=== PATIENT | female | born 1955 | race Two or more races ===

== ENCOUNTER 2017-06-30 15:35 | Inpatient (IN) | payer OTHER ==
[~2017-06-30] VITALS: Ht 165.1 cm; Wt 74.8 kg
[2017-06-30] MEDS ORDERED: DEXTROSE 50% WATER 50ML SYRINGE IV ONE ×3 (16:23→22:54)
[2017-06-30 16:32] LABS: BASOPHILS % 0.8 % (0.0-2.0); CHLORIDE 107 mEq/L (98-107); EOSINOPHILS % 2.2 % (0.0-5.0); HEMATOCRIT. 32.5 % (36.0-48.0); HEMOGLOBIN. 10.7 g/dL (12.0-16.0); LYMPHOCYTES % 23.5 % (20.0-50.0); MEAN CORPUSCULAR HEMOGLOBIN 27.2 pg (28.0-32.0); MEAN CORPUSCULAR VOLUME 82.5 fL (81.0-99.0); MEAN PLATELET VOLUME 7.3 fl (7.4-10.4); MONOCYTES % 9.6 % (2.0-8.0); NEUTROPHILS % 63.9 % (40.0-76.0); PLATELET 438 x1000/uL (130-400); RED BLOOD CELL COUNT 3.94 mill/uL (4.2-5.4); RED CELL DISTRIBUTION WIDTH 15.6 % (11.6-14.6)
[2017-06-30 20:36] LABS: CLARITY URINE CLEAR (CLEAR); COLOR URINE YELLOW (YELLOW); KETONES URINE NEGATIVE (NEGATIVE); LEUKOCYTE ESTERASE URINE NEGATIVE (NEGATIVE); NITRITE URINE NEGATIVE (NEGATIVE); OCCULT BLOOD URINE NEGATIVE (NEGATIVE); PH URINE 6.5 (4.5-8.0); PROTEIN URINE TRACE (NEGATIVE); UROBILINOGEN URINE 0.2 E.U./dL (0.2-1.0)
[2017-06-30 23:40] VITALS: BP 125/72
[2017-07-01] MEDS ORDERED: METF500T4 PO (00:40)
[2017-07-01] MEDS ORDERED: GLIP10TA10 PO (00:40)
[2017-07-01] MEDS ORDERED: DEXTROSE 50% WATER 50ML SYRINGE IV PRN (01:45)
[2017-07-01] MEDS: DEXT 10% WATER 1,000 ML IV SCH ×2 (02:13→12:28)
[2017-07-01] MEDS: ACETAMINOPHEN 325MG TABLET PO PRN ×2 (02:15→06:20)
[2017-07-01 03:09] VITALS: BP 125/72
[2017-07-01 04:00] VITALS: BP 127/58
[2017-07-01] MEDS: BLOOD SUGAR DIAGNOSTIC STRIP TEST SCH ×4 (04:15→21:00)
[2017-07-01 06:38] LABS: BASOPHILS % 0.6 % (0.0-2.0); EOSINOPHILS % 2.9 % (0.0-5.0); HEMOGLOBIN. 9.5 g/dL (12.0-16.0); LYMPHOCYTES % 28.5 % (20.0-50.0); MEAN CORPUSCULAR HEMOGLOBIN 27.2 pg (28.0-32.0); MEAN CORPUSCULAR VOLUME 82.7 fL (81.0-99.0); MEAN PLATELET VOLUME 8.1 fl (7.4-10.4); MONOCYTES % 11.6 % (2.0-8.0); NEUTROPHILS % 56.4 % (40.0-76.0); PLATELET 393 x1000/uL (130-400); RED CELL DISTRIBUTION WIDTH 15.6 % (11.6-14.6)
[2017-07-01 08:00] VITALS: BP 140/78
[2017-07-01] MEDS ORDERED: MORPHINE SULFATE 4 MG/ML CPJ (NOT FOR IM USE) IV PRN (09:15)
[2017-07-01 12:00] VITALS: BP 151/79
[2017-07-01] MEDS: HYDROCODONE/ACETAMINOPHEN 5/325MG TABLET PO PRN ×2 (12:27→20:30)
[2017-07-01 16:00] VITALS: BP 134/72
[2017-07-01 20:00] VITALS: BP 152/76
[2017-07-02] MEDS: DEXT 10% WATER 1,000 ML IV SCH (00:04)
[2017-07-02 00:11] VITALS: BP 126/59
[2017-07-02] MEDS: HYDROCODONE/ACETAMINOPHEN 5/325MG TABLET PO PRN ×2 (02:18→12:24)
[2017-07-02] MEDS ORDERED: BLOOD SUGAR DIAGNOSTIC STRIP TEST SCH (03:00)
[2017-07-02 04:00] VITALS: BP 142/67
[2017-07-02] MEDS: BLOOD SUGAR DIAGNOSTIC STRIP TEST SCH ×2 (06:53→12:40)
[2017-07-02 07:28] LABS: T4 FREE 0.89 ng/dL (0.76-1.46)
[2017-07-02 08:00] VITALS: BP 156/80
[2017-07-02 08:15] LABS: VITAMIN B12 SERUM 321 pg/mL (211-911)
[2017-07-02] MEDS: INSULIN LISPRO 100 UNITS/ML SUBCUT SCH ×2 (08:35→13:01)
[2017-07-02 11:52] LABS: HEPATITIS B SURFACE ANTIGEN NEGATIVE
[2017-07-02 12:00] VITALS: BP 156/90
[2017-07-02 12:20] LABS: HEPATITIS B CORE AB IGM NEGATIVE
[2017-07-02 12:21] LABS: HEPATITIS A AB IGM NEGATIVE (NEGATIVE)
[2017-07-02] MEDS ORDERED: MAGNESIUM 2 G PREMIX 50 ML IV NR (14:00)
[2017-07-02 14:54] VITALS: BP 159/90
[2017-07-03 10:06] LABS: VITAMIN D 25-OH 12.6 ng/mL (30.0-100.0)
[2017-07-03 13:09] LABS: A/G RATIO 1.2 (0.7-1.7); ALPHA-1-GLOBULIN 0.3 g/dL (0.0-0.4); ALPHA-2-GLOBULIN 0.5 g/dL (0.4-1.0); GAMMA GLOBULINS 0.7 g/dL (0.4-1.8); GLOBULIN TOTAL 2.6 g/dL (2.2-3.9); M-SPIKE Not Observed g/dL (Not Observed); TOTAL PROTEIN SERUM 5.6 g/dL (6.0-8.5)
== END 2017-07-02 15:20 | disposition home or self-care (01) | DRG 420 ==
LOC: ER 15:35 → 7WST 20:55 → EDBEDREQTM 21:02 → EDBEDREQ 21:02 → ENRESERV 22:42
PROVIDERS: ADMIT Internal Medicine; ATTEND Internal Medicine
DX: E11.649 Type 2 diabetes mellitus with hypoglycemia without coma (principal); N17.9 Acute kidney failure, unspecified; E11.22 Type 2 diabetes mellitus with diabetic chronic kidney disease; N18.3 Chronic kidney disease, stage 3 (moderate); E83.42 Hypomagnesemia; E83.51 Hypocalcemia; K76.89 Other specified diseases of liver; E83.52 Hypercalcemia; E87.6 Hypokalemia; D64.9 Anemia, unspecified; I12.9 Hypertensive chronic kidney disease with stage 1 through stage 4 chronic kidney disease, or unspecified chronic kidney disease; E78.00 Pure hypercholesterolemia, unspecified; J02.0 Streptococcal pharyngitis; Z79.84 Long term (current) use of oral hypoglycemic drugs; Z82.49 Family history of ischemic heart disease and other diseases of the circulatory system; Z83.3 Family history of diabetes mellitus; Z79.899 Other long term (current) drug therapy
CPT/HCPCS: 36415; 71045; 76700; 80048; 80053; 80307; 81003; 82306; 82533; 82607; 82746; 82962; 83036; 83540; 83550; 83735; 83921; 83970; 84155; 84165; 84439; 84443; 85025; 86705; 86709; 86803; 87086; 87340; 87430; 93005; 96374; 99285; J1815; J3475

== ENCOUNTER 2024-02-27 03:05 | Emergency (ER) | payer MEDICARE, MEDICAID ==
[~2024-02-27] VITALS: Ht 149.9 cm; Wt 84.0 kg
[~2024-02-27 03:05] MED LIST: METF-414 PO
[2024-02-27 03:22] VITALS: TEMP 98.5; O2SAT 100
[2024-02-27 04:02] LABS: EOSINOPHILS % 3.5 % (0.0-5.0); HEMATOCRIT. 32.6 % (36.0-48.0); HEMOGLOBIN. 10.7 g/dL (12.0-16.0); LYMPHOCYTES % 23.9 % (20.0-50.0); MEAN CORPUSCULAR HEMOGLOBIN 28.3 pg (28.0-32.0); MEAN CORPUSCULAR HGB CONC 32.7 g/dL (31.0-37.0); MEAN CORPUSCULAR VOLUME 86.8 fL (81.0-99.0); MONOCYTES % 10.7 % (2.0-8.0); NEUTROPHILS % 60.9 % (40.0-76.0); PLATELET 296 x1000/uL (130-400); RED BLOOD CELL COUNT 3.76 mill/uL (4.2-5.4); RED CELL DISTRIBUTION WIDTH 15.2 % (11.6-14.6); WHITE BLOOD COUNT 7.9 x1000/uL (4.5-11.0)
[2024-02-27 04:03] LABS: CHLORIDE 113 mEq/L (98-107); POTASSIUM 5.2 mEq/L (3.5-5.1); SODIUM 141 mEq/L (136-145)
[2024-02-27 04:04] LABS: CALCIUM 9.6 mg/dL (8.7-10.4); CARBON DIOXIDE 19 mEq/L (21-32)
[2024-02-27] MEDS: ONDANSETRON 4MG ODT PO STA (04:04)
[2024-02-27] MEDS: HYDROCODONE/ACETAMINOPHEN 5/325MG TABLET PO ONE (04:04)
[2024-02-27 04:09] LABS: CREATININE 3.5 mg/dL (0.6-1.0); GLUCOSE 196 mg/dL (70-105); UREA NITROGEN BLOOD 58 mg/dL (9-23)
[2024-02-27 04:11] LABS: ALANINE AMINOTRANSFERASE 13 IU/L (10-49); ALBUMIN 4.3 g/dL (3.2-4.8); ASPARTATE AMINOTRANSFERASE 16 IU/L (<34); BILIRUBIN TOTAL 0.3 mg/dL (0.1-1.0); PROTEIN TOTAL 7.5 g/dL (6.0-8.3)
[2024-02-27] MEDS ORDERED: BENAZEPRIL 10MG TABLET PO ONE (04:30)
[2024-02-27] MEDS: LISINOPRIL 10MG TABLET PO NR (04:49)
[2024-02-27 05:36] LABS: CLARITY URINE CLEAR (CLEAR); COLOR URINE YELLOW (YELLOW); GLUCOSE URINE NEGATIVE (NEGATIVE); KETONES URINE NEGATIVE (NEGATIVE); LEUKOCYTE ESTERASE URINE NEGATIVE (NEGATIVE); NITRITE URINE NEGATIVE (NEGATIVE); OCCULT BLOOD URINE NEGATIVE (NEGATIVE); PH URINE 5.5 (4.5-8.0); PROTEIN URINE 2+ (NEGATIVE); SPECIFIC GRAVITY URINE 1.009 (1.005-1.030); UROBILINOGEN URINE 0.2 E.U./dL (0.2-1.0)
[2024-02-27 05:59] LABS: SQUAMOUS EPITHELIAL CELL URINE FEW /lpf (RARE/1+)
[2024-02-27 06:00] LABS: BACTERIA URINE NONE SEEN; RBC URINE 0-2 /hpf (0-2); WBC URINE 0-2 /hpf (0-2)
[2024-02-27 06:02] VITALS: BP 121/56; PULSE 96; RESP 18; O2SAT 97
== END 2024-02-27 06:03 | disposition home or self-care (01) ==
LOC: ER 03:05
DX: D25.9 Leiomyoma of uterus, unspecified (principal); I31.39 Other pericardial effusion (noninflammatory); N28.89 Other specified disorders of kidney and ureter; E11.65 Type 2 diabetes mellitus with hyperglycemia; I10 Essential (primary) hypertension
CPT/HCPCS: 99284; 74176; 80053; 81003; 83690; 85025; 36415; Q0162

== ENCOUNTER 2024-03-11 10:11 | Emergency (ER) | payer MEDICARE, MEDICAID ==
[~2024-03-11] VITALS: Ht 149.9 cm; Wt 83.0 kg
[2024-03-11 10:22] VITALS: O2SAT 100
[2024-03-11] MEDS: MORPHINE SULFATE 4 MG/ML INJ (FOR IV/IM USE) IV ONE (11:06)
[2024-03-11] MEDS: SODIUM CHLORIDE 0.9% 1,000 ML IV ONE (11:06)
[2024-03-11] MEDS: ONDANSETRON HCL 4MG/2ML INJ IV ONE (11:06)
[2024-03-11 11:13] LABS: BASOPHILS % 1.1 % (0.0-2.0); EOSINOPHILS % 2.5 % (0.0-5.0); HEMATOCRIT. 30.7 % (36.0-48.0); HEMOGLOBIN. 9.9 g/dL (12.0-16.0); LYMPHOCYTES % 18.7 % (20.0-50.0); MEAN CORPUSCULAR HEMOGLOBIN 28.2 pg (28.0-32.0); MEAN CORPUSCULAR HGB CONC 32.3 g/dL (31.0-37.0); MEAN CORPUSCULAR VOLUME 87.5 fL (81.0-99.0); MONOCYTES % 9.9 % (2.0-8.0); NEUTROPHILS % 67.8 % (40.0-76.0); PLATELET 349 x1000/uL (130-400); RED BLOOD CELL COUNT 3.51 mill/uL (4.2-5.4); RED CELL DISTRIBUTION WIDTH 15.1 % (11.6-14.6); WHITE BLOOD COUNT 8.3 x1000/uL (4.5-11.0)
[2024-03-11 11:21] LABS: CHLORIDE 111 mEq/L (98-107); POTASSIUM 4.5 mEq/L (3.5-5.1); SODIUM 144 mEq/L (136-145)
[2024-03-11 11:22] LABS: CARBON DIOXIDE 24 mEq/L (21-32)
[2024-03-11 11:23] LABS: CALCIUM 9.9 mg/dL (8.7-10.4)
[2024-03-11 11:27] LABS: CREATININE 3.2 mg/dL (0.6-1.0); GLUCOSE 80 mg/dL (70-105)
[2024-03-11 11:28] LABS: TROPONIN I HIGH SENSITIVITY 17 ng/L (3.0-34); UREA NITROGEN BLOOD 39 mg/dL (9-23)
[2024-03-11 11:29] LABS: ALANINE AMINOTRANSFERASE 13 IU/L (10-49); ALBUMIN 4.2 g/dL (3.2-4.8); ASPARTATE AMINOTRANSFERASE 21 IU/L (<34)
[2024-03-11 11:30] LABS: BILIRUBIN TOTAL 0.4 mg/dL (0.1-1.0); PROTEIN TOTAL 7.1 g/dL (6.0-8.3)
[2024-03-11 11:31] LABS: BILIRUBIN DIRECT < 0.1 mg/dL (<=3.0)
[2024-03-11] MEDS ORDERED: PANT20TA17 MT (12:48)
[2024-03-11 13:48] VITALS: BP 198/90; PULSE 68; RESP 21; TEMP 36.61404; O2SAT 95
== END 2024-03-11 13:54 | disposition home or self-care (01) ==
LOC: ER 10:11
DX: R10.12 Left upper quadrant pain (principal); R10.11 Right upper quadrant pain; E11.9 Type 2 diabetes mellitus without complications; I10 Essential (primary) hypertension; E78.00 Pure hypercholesterolemia, unspecified; Z90.49 Acquired absence of other specified parts of digestive tract
CPT/HCPCS: 99284; 74176; 96374; 96361; 96375; 80076; 80048; 83690; 85025; 84484; 36415; 93005; J2405; J2270; J7030

== ENCOUNTER 2024-05-08 07:39 | Inpatient (IN) | payer MEDICARE, MEDICAID ==
[~2024-05-08] VITALS: Ht 157.5 cm; Wt 98.0 kg
[~2024-05-08 07:39] MED LIST changes: +ALBU90AE INH; +AMLO10TA80 PO; +ATOR20TA PO; +FURO40TA5 MT; +HYDR25TA78 PO; +LANTUSUD SUBCUT; -METF-414 PO; +METO-385 PO; +MONT-46 PO; +SITA50TA3 PO
[2024-05-08] MEDS: FUROSEMIDE 40MG/4ML VIAL IVP ONE (08:53)
[2024-05-08 09:17] LABS: BASOPHILS % 0.8 % (0.0-2.0); EOSINOPHILS % 2.3 % (0.0-5.0); HEMATOCRIT. 26.2 % (36.0-48.0); HEMOGLOBIN. 8.7 g/dL (12.0-16.0); MEAN CORPUSCULAR HEMOGLOBIN 28.3 pg (28.0-32.0); MEAN CORPUSCULAR HGB CONC 33.1 g/dL (31.0-37.0); MEAN CORPUSCULAR VOLUME 85.4 fL (81.0-99.0); MEAN PLATELET VOLUME 8.1 fl (7.4-10.4); MONOCYTES % 10.8 % (2.0-8.0); NEUTROPHILS % 77.1 % (40.0-76.0); PLATELET 270 x1000/uL (130-400); RED BLOOD CELL COUNT 3.06 mill/uL (4.2-5.4); RED CELL DISTRIBUTION WIDTH 15.2 % (11.6-14.6); WHITE BLOOD COUNT 10.8 x1000/uL (4.5-11.0)
[2024-05-08 09:28] LABS: CHLORIDE 109 mEq/L (98-107); POTASSIUM 4.2 mEq/L (3.5-5.1); SODIUM 142 mEq/L (136-145)
[2024-05-08 09:29] LABS: CALCIUM 8.9 mg/dL (8.7-10.4); CARBON DIOXIDE 23 mEq/L (21-32)
[2024-05-08 09:34] LABS: CREATININE 3.1 mg/dL (0.6-1.0); GLUCOSE 255 mg/dL (70-105); TROPONIN I HIGH SENSITIVITY 12 ng/L (3.0-34); UREA NITROGEN BLOOD 61 mg/dL (9-23)
[2024-05-08] MEDS ORDERED: ACETAMINOPHEN 325MG TABLET PO PRN (09:45)
[2024-05-08] MEDS ORDERED: DEXTROSE 50% WATER 50ML SYRINGE IV PRN (10:00)
[2024-05-08] MEDS: PANTOPRAZOLE SODIUM 40 MG/VIAL IV SCH (10:11)
[2024-05-08] MEDS: FUROSEMIDE 40MG/4ML VIAL IVP SCH (10:12)
[2024-05-08] MEDS: AMLODIPINE 5MG TABLET PO NR (10:12)
[2024-05-08 10:14] VITALS: PULSE 92; RESP 16; O2SAT 100
[2024-05-08] MEDS: IPRATROPIUM/ALBUTEROL 0.5-3(2.5)MG/3ML NEB NEB SCH (10:14)
[2024-05-08] MEDS: INSULIN GLARGINE 100 UNITS/ML SUBCUT SCH (10:23)
[2024-05-08] MEDS ORDERED: NALOXONE HCL 0.4MG/ML VIAL IV PRN (10:30)
[2024-05-08] MEDS: METOPROLOL SUCCINATE 25MG ER TABLET PO SCH (10:42)
[2024-05-08] MEDS: ENOXAPARIN 40MG/0.4ML SYR SUBCUT SCH (11:04)
[2024-05-08 11:41] LABS: TROPONIN I HIGH SENSITIVITY 12 ng/L (3.0-34)
[2024-05-08] MEDS: BLOOD SUGAR DIAGNOSTIC STRIP TEST SCH (13:08)
[2024-05-08] MEDS: INSULIN LISPRO 100 UNITS/ML SUBCUT SCH (13:40)
[2024-05-08] MEDS: HYDRALAZINE HCL 25MG TABLET PO SCH (15:12)
[2024-05-08 15:21] VITALS: PULSE 89; RESP 20
[2024-05-08] MEDS: MONTELUKAST SODIUM 10MG TABLET PO SCH (17:17)
[2024-05-08] MEDS: ONDANSETRON HCL 4MG/2ML INJ IV PRN (18:07)
[2024-05-08 18:32] LABS: CREATINE KINASE 128 IU/L (34-145); PHOSPHORUS 3.1 mg/dL (2.5-4.9)
[2024-05-08] MEDS: CLONIDINE 0.1MG TABLET PO PRN (19:13)
[2024-05-08 19:59] VITALS: PULSE 85; RESP 18; O2SAT 99
[2024-05-08] MEDS: HYDROCODONE/ACETAMINOPHEN 5/325MG TABLET PO PRN (20:52)
[2024-05-08] MEDS ORDERED: ZOLPIDEM TARTRATE 5MG TABLET PO PRN (21:00)
[2024-05-08] MEDS: ATORVASTATIN CALCIUM 20MG TABLET PO SCH (21:02)
[2024-05-08 23:00] VITALS: BP 100/46; PULSE 68; RESP 18; TEMP 36.6
[2024-05-09] VITALS (8 sets, daily range): BP systolic 100–139; BP diastolic 45–65; PULSE 68–98; RESP 17–20; TEMP 36.2–37.4; O2SAT 95–100
[2024-05-09 02:18] LABS: TROPONIN I HIGH SENSITIVITY 13 ng/L (3.0-34)
[2024-05-09] MEDS: AMLODIPINE 10MG TABLET PO SCH (09:45)
[2024-05-09 10:18] LABS: BASOPHILS % 0.8 % (0.0-2.0); EOSINOPHILS % 3.2 % (0.0-5.0); HEMOGLOBIN. 7.4 g/dL (12.0-16.0); MEAN CORPUSCULAR HEMOGLOBIN 27.9 pg (28.0-32.0); MEAN CORPUSCULAR HGB CONC 32.4 g/dL (31.0-37.0); MEAN CORPUSCULAR VOLUME 86.3 fL (81.0-99.0); MEAN PLATELET VOLUME 7.9 fl (7.4-10.4); MONOCYTES % 12.3 % (2.0-8.0); NEUTROPHILS % 69.7 % (40.0-76.0); PLATELET 229 x1000/uL (130-400); RED BLOOD CELL COUNT 2.67 mill/uL (4.2-5.4); RED CELL DISTRIBUTION WIDTH 15.2 % (11.6-14.6); WHITE BLOOD COUNT 8.7 x1000/uL (4.5-11.0)
[2024-05-09 10:21] LABS: POTASSIUM 4.7 mEq/L (3.5-5.1)
[2024-05-09 10:22] LABS: CALCIUM 8.9 mg/dL (8.7-10.4)
[2024-05-09 10:27] LABS: CREATININE 3.4 mg/dL (0.6-1.0)
[2024-05-10] VITALS: BP 121/60; PULSE 94; RESP 18; TEMP 36.5; O2SAT 95
[2024-05-10] MEDS: METHYLPREDNISOLONE SOD SUCC 40MG/ML (ACT-O-VIAL) IV SCH (02:19)
[2024-05-10 04:00] VITALS: BP 126/60; PULSE 61; RESP 18; TEMP 36.5; O2SAT 99
[2024-05-10 06:18] LABS: *AMPHETAMINES SCREEN URINE NEGATIVE (NEGATIVE); *BARBITURATES SCREEN URINE NEGATIVE (NEGATIVE); *BENZODIAZEPINES SCREEN URINE NEGATIVE (NEGATIVE); *COCAINE SCREEN URINE NEGATIVE (NEGATIVE); CANNABINOID URINE SCREEN NEGATIVE (NEGATIVE); ECSTASY MDMA SCREEN URINE NEGATIVE (NEGATIVE); METHADONE URINE SCREEN NEGATIVE (NEGATIVE); OPIATES URINE SCREEN PRESUMPTIVE POSITIVE (NEGATIVE); PHENCYCLIDINE URINE SCREEN NEGATIVE (NEGATIVE)
[2024-05-10 06:46] LABS: POTASSIUM 4.8 mEq/L (3.5-5.1)
[2024-05-10 06:47] LABS: CALCIUM 9.4 mg/dL (8.7-10.4)
[2024-05-10 06:52] LABS: CREATININE 3.6 mg/dL (0.6-1.0)
[2024-05-10 07:11] LABS: BASOPHILS % 0.6 % (0.0-2.0); EOSINOPHILS % 2.6 % (0.0-5.0); HEMATOCRIT. 24.7 % (36.0-48.0); HEMOGLOBIN. 8.1 g/dL (12.0-16.0); LYMPHOCYTES % 10.6 % (20.0-50.0); MEAN CORPUSCULAR HGB CONC 32.6 g/dL (31.0-37.0); MEAN CORPUSCULAR VOLUME 85.8 fL (81.0-99.0); MEAN PLATELET VOLUME 8.5 fl (7.4-10.4); MONOCYTES % 6.9 % (2.0-8.0); NEUTROPHILS % 79.3 % (40.0-76.0); PLATELET 258 x1000/uL (130-400); RED BLOOD CELL COUNT 2.88 mill/uL (4.2-5.4); WHITE BLOOD COUNT 10.7 x1000/uL (4.5-11.0)
[2024-05-10 08:00] VITALS: BP 142/66; PULSE 86; RESP 16; TEMP 36.6; O2SAT 98
[2024-05-10 12:00] VITALS: BP 126/60; PULSE 88; RESP 18; TEMP 36.2; O2SAT 99
[2024-05-10 16:00] VITALS: BP 132/66; PULSE 78; RESP 16; TEMP 36.4; O2SAT 98
[2024-05-10 20:00] VITALS: BP 119/53; PULSE 91; RESP 20; TEMP 36.3; O2SAT 100
[2024-05-11] VITALS (8 sets, daily range): BP systolic 117–133; BP diastolic 48–66; PULSE 72–91; RESP 2–22; TEMP 35.8–36.5; O2SAT 95–98
[2024-05-11 07:00] LABS: CALCIUM 9.3 mg/dL (8.7-10.4); POTASSIUM 5.6 mEq/L (3.5-5.1)
[2024-05-11 07:06] LABS: CREATININE 3.1 mg/dL (0.6-1.0)
[2024-05-11 07:57] LABS: HEMATOCRIT. 25.6 % (36.0-48.0); HEMOGLOBIN. 8.2 g/dL (12.0-16.0); MEAN CORPUSCULAR HEMOGLOBIN 27.5 pg (28.0-32.0); MEAN CORPUSCULAR HGB CONC 32.2 g/dL (31.0-37.0); MEAN CORPUSCULAR VOLUME 85.5 fL (81.0-99.0); MEAN PLATELET VOLUME 8.5 fl (7.4-10.4); PLATELET 261 x1000/uL (130-400); RED BLOOD CELL COUNT 2.99 mill/uL (4.2-5.4); RED CELL DISTRIBUTION WIDTH 14.7 % (11.6-14.6); WHITE BLOOD COUNT 11.5 x1000/uL (4.5-11.0)
[2024-05-11 10:01] LABS: DIFFERENTIAL COMMENT 1
[2024-05-11] MEDS: SODIUM POLYSTYRENE SULFONATE 15 G/60 ML BOT PO SCH (11:45)
[2024-05-11 16:55] LABS: PLATELET ESTIMATE NORMAL
[2024-05-12] VITALS: BP 153/70; PULSE 90; RESP 18; TEMP 36.4; O2SAT 99
[2024-05-12 03:11] VITALS: PULSE 81
[2024-05-12 04:00] VITALS: BP 128/53; PULSE 91; RESP 18; TEMP 36.5; O2SAT 98
[2024-05-12 07:10] LABS: CHLORIDE 105 mEq/L (98-107); POTASSIUM 4.8 mEq/L (3.5-5.1); SODIUM 140 mEq/L (136-145)
[2024-05-12 07:11] LABS: CARBON DIOXIDE 22 mEq/L (21-32)
[2024-05-12 07:13] LABS: HEMATOCRIT. 25.8 % (36.0-48.0); HEMOGLOBIN. 8.5 g/dL (12.0-16.0); MEAN CORPUSCULAR HEMOGLOBIN 27.9 pg (28.0-32.0); MEAN CORPUSCULAR VOLUME 84.6 fL (81.0-99.0); MEAN PLATELET VOLUME 8.7 fl (7.4-10.4); PLATELET 291 x1000/uL (130-400); RED BLOOD CELL COUNT 3.05 mill/uL (4.2-5.4)
[2024-05-12 07:16] LABS: CREATININE 3.2 mg/dL (0.6-1.0); GLUCOSE 328 mg/dL (70-105)
[2024-05-12 07:17] LABS: UREA NITROGEN BLOOD 74 mg/dL (9-23)
[2024-05-12 07:19] LABS: PHOSPHORUS 4.5 mg/dL (2.5-4.9)
[2024-05-12 07:47] LABS: DIFFERENTIAL COMMENT 1
[2024-05-12 08:00] VITALS: BP 141/74; PULSE 79; RESP 17; TEMP 36.4; O2SAT 98
[2024-05-12] MEDS ORDERED: FURO40TA5 MT (12:17)
[2024-05-12] MEDS ORDERED: P20 MT (12:19)
[2024-05-12] MEDS: FUROSEMIDE 40MG TABLET PO NR (12:48)
[2024-05-12 12:56] VITALS: BP 141/74; PULSE 79; TEMP 97.5; O2SAT 98
[2024-05-12 14:29] LABS: PLATELET ESTIMATE NORMAL
== END 2024-05-12 14:00 | disposition home or self-care (01) | DRG 291 ==
LOC: ER 07:39 → 6WST 12:33
PROVIDERS: ADMIT Internal Medicine; ATTEND Internal Medicine
DX: I13.2 Hypertensive heart and chronic kidney disease with heart failure and with stage 5 chronic kidney disease, or end stage renal disease (principal); I50.33 Acute on chronic diastolic (congestive) heart failure; N17.9 Acute kidney failure, unspecified; N18.5 Chronic kidney disease, stage 5; R06.89 Other abnormalities of breathing; J44.89 Other specified chronic obstructive pulmonary disease; F17.210 Nicotine dependence, cigarettes, uncomplicated; D63.1 Anemia in chronic kidney disease; E11.22 Type 2 diabetes mellitus with diabetic chronic kidney disease; K57.30 Diverticulosis of large intestine without perforation or abscess without bleeding; E66.9 Obesity, unspecified; E78.5 Hyperlipidemia, unspecified; I34.0 Nonrheumatic mitral (valve) insufficiency; I34.81 Nonrheumatic mitral (valve) annulus calcification; N20.0 Calculus of kidney; Z90.49 Acquired absence of other specified parts of digestive tract; Z68.39 Body mass index [BMI] 39.0-39.9, adult
CPT/HCPCS: 36415; 71045; 76604; 76770; 80048; 80061; 80305; 82550; 82962; 83036; 83735; 84100; 84484; 85025; 93005; 93880; 94070; 94640; 94664; 98960; 99291; A4606; J1650; J1815; J1940; J2405; J2470; J2920

== ENCOUNTER 2024-10-26 09:29 | Emergency (ER) | payer MEDICARE, MEDICAID ==
[~2024-10-26] VITALS: Ht 149.9 cm; Wt 86.0 kg
[~2024-10-26 09:29] MED LIST changes: +FERR325T30 PO; +FLUT1BLS INH; +METH4TAB95 MT; +OMEP20CA14 PO; +PRED5DRO22 BOTHEYE; +RISP-28 PO
[2024-10-26 11:32] LABS: BASOPHILS % 1.1 % (0.0-2.0); EOSINOPHILS % 3.5 % (0.0-5.0); HEMATOCRIT. 31.4 % (36.0-48.0); HEMOGLOBIN. 10.3 g/dL (12.0-16.0); LYMPHOCYTES % 15.6 % (20.0-50.0); MEAN PLATELET VOLUME 7.3 fl (7.4-10.4); MONOCYTES % 9.2 % (2.0-8.0); NEUTROPHILS % 70.6 % (40.0-76.0); PLATELET 351 x1000/uL (130-400); RED BLOOD CELL COUNT 3.78 mill/uL (4.2-5.4); RED CELL DISTRIBUTION WIDTH 16.3 % (11.6-14.6)
[2024-10-26 11:48] LABS: ASPARTATE AMINOTRANSFERASE 16 IU/L (<34); CREATININE 3.8 mg/dL (0.6-1.0); UREA NITROGEN BLOOD 45 mg/dL (9-23)
[2024-10-26 11:50] LABS: BILIRUBIN DIRECT 0.1 mg/dL (<=3.0); BILIRUBIN TOTAL 0.5 mg/dL (0.1-1.0)
[2024-10-26 11:51] LABS: PROTEIN TOTAL 7.7 g/dL (6.0-8.3)
[2024-10-26 12:03] VITALS: PULSE 66; RESP 18; O2SAT 95
[2024-10-26] MEDS: IPRATROPIUM/ALBUTEROL 0.5-3(2.5)MG/3ML NEB HHN ONE (12:03)
[2024-10-26] MEDS: ONDANSETRON 4MG ODT PO ONE (12:28)
[2024-10-26 14:13] LABS: CLARITY URINE CLEAR (CLEAR); COLOR URINE YELLOW (YELLOW); GLUCOSE URINE 2+ (NEGATIVE); KETONES URINE NEGATIVE (NEGATIVE); LEUKOCYTE ESTERASE URINE NEGATIVE (NEGATIVE); NITRITE URINE NEGATIVE (NEGATIVE); OCCULT BLOOD URINE NEGATIVE (NEGATIVE); PH URINE 5.5 (4.5-8.0); PROTEIN URINE 3+ (NEGATIVE); SPECIFIC GRAVITY URINE 1.016 (1.005-1.030); UROBILINOGEN URINE 0.2 E.U./dL (0.2-1.0)
[2024-10-26] MEDS ORDERED: ACET-2708 MT (14:31)
[2024-10-26 14:58] LABS: HYALINE CASTS URINE 0-5 /lpf; SQUAMOUS EPITHELIAL CELL URINE 2+ /lpf (RARE/1+)
[2024-10-26 14:59] LABS: BACTERIA URINE NONE SEEN; RBC URINE 0-2 /hpf (0-2)
[2024-10-26 15:06] VITALS: BP 169/72; PULSE 69; RESP 18; TEMP 37.1; O2SAT 99
== END 2024-10-26 15:07 | disposition home or self-care (01) ==
LOC: ER 09:29
DX: J45.901 Unspecified asthma with (acute) exacerbation (principal); E11.9 Type 2 diabetes mellitus without complications; E78.00 Pure hypercholesterolemia, unspecified; I10 Essential (primary) hypertension; Z79.51 Long term (current) use of inhaled steroids; Z79.84 Long term (current) use of oral hypoglycemic drugs; Z79.899 Other long term (current) drug therapy
CPT/HCPCS: 99284; 74176; 80076; 80048; 81003; 83690; 83735; 85025; 36415; 94640; 93005; Q0162; 94070

== ENCOUNTER 2024-12-05 03:39 | Inpatient (IN) | payer MEDICARE, MEDICAID ==
[~2024-12-05] VITALS: Ht 149.9 cm; Wt 96.7 kg
[~2024-12-05 03:39] MED LIST changes: +ACET-2708 MT
[2024-12-05 04:52] LABS: CLARITY URINE CLEAR (CLEAR); COLOR URINE YELLOW (YELLOW); GLUCOSE URINE NEGATIVE (NEGATIVE); KETONES URINE NEGATIVE (NEGATIVE); LEUKOCYTE ESTERASE URINE TRACE (NEGATIVE); NITRITE URINE NEGATIVE (NEGATIVE); OCCULT BLOOD URINE NEGATIVE (NEGATIVE); PH URINE 5.5 (4.5-8.0); PROTEIN URINE 2+ (NEGATIVE); SPECIFIC GRAVITY URINE 1.010 (1.005-1.030); UROBILINOGEN URINE 0.2 E.U./dL (0.2-1.0)
[2024-12-05 04:53] LABS: BASOPHILS % 1.2 % (0.0-2.0); EOSINOPHILS % 2.8 % (0.0-5.0); HEMATOCRIT. 24.9 % (36.0-48.0); HEMOGLOBIN. 8.0 g/dL (12.0-16.0); LYMPHOCYTES % 11.7 % (20.0-50.0); MEAN PLATELET VOLUME 7.4 fl (7.4-10.4); MONOCYTES % 10.2 % (2.0-8.0); NEUTROPHILS % 74.1 % (40.0-76.0); PLATELET 363 x1000/uL (130-400); RED BLOOD CELL COUNT 2.95 mill/uL (4.2-5.4); RED CELL DISTRIBUTION WIDTH 16.5 % (11.6-14.6)
[2024-12-05 05:01] LABS: *AMPHETAMINES SCREEN URINE NEGATIVE (NEGATIVE); *BARBITURATES SCREEN URINE NEGATIVE (NEGATIVE); *BENZODIAZEPINES SCREEN URINE NEGATIVE (NEGATIVE); *COCAINE SCREEN URINE NEGATIVE (NEGATIVE); CANNABINOID URINE SCREEN NEGATIVE (NEGATIVE); ECSTASY MDMA SCREEN URINE NEGATIVE (NEGATIVE); METHADONE URINE SCREEN NEGATIVE (NEGATIVE); OPIATES URINE SCREEN NEGATIVE (NEGATIVE); PHENCYCLIDINE URINE SCREEN NEGATIVE (NEGATIVE)
[2024-12-05 05:04] LABS: INR 0.9
[2024-12-05 05:06] LABS: CREATININE 4.7 mg/dL (0.6-1.0); UREA NITROGEN BLOOD 70 mg/dL (9-23)
[2024-12-05 05:07] LABS: TROPONIN I HIGH SENSITIVITY 12 ng/L (3.0-34)
[2024-12-05 05:08] LABS: ASPARTATE AMINOTRANSFERASE 23 IU/L (<34); BILIRUBIN DIRECT < 0.1 mg/dL (<=3.0); BILIRUBIN TOTAL 0.3 mg/dL (0.1-1.0); PROTEIN TOTAL 7.2 g/dL (6.0-8.3)
[2024-12-05] MEDS: IOHEXOL-350 100 ML BOTTLE ONE (05:41)
[2024-12-05] MEDS: ACETAMINOPHEN 325MG TABLET PO SCH (05:46)
[2024-12-05 06:45] LABS: SQUAMOUS EPITHELIAL CELL URINE FEW /lpf (RARE/1+)
[2024-12-05 06:46] LABS: WBC URINE 0-2 /hpf (0-2)
[2024-12-05 06:47] LABS: BACTERIA URINE TRACE; RBC URINE 0-2 /hpf (0-2)
[2024-12-05] MEDS: ALBUTEROL (0.5%) 2.5MG/0.5ML NEB HHN ONE (08:43)
[2024-12-05] MEDS: ASPIRIN 81MG EC TABLET PO SCH (12:00)
[2024-12-05] MEDS: CLOPIDOGREL 75MG TABLET PO SCH (12:00)
[2024-12-05 12:31] LABS: LDL CHOLESTEROL 95.0 mg/dL (5-100); TRIGLYCERIDE 88.0 mg/dL (0-150)
[2024-12-05] MEDS ORDERED: MAGNESIUM/ALUMINUM HYDROXIDE/SIMETHICONE 30ML UDC PO PRN (14:15)
[2024-12-05] MEDS ORDERED: LORAZEPAM 0.5MG TABLET PO PRN (14:15)
[2024-12-05] MEDS ORDERED: ONDANSETRON HCL 4MG/2ML INJ IV PRN (14:15)
[2024-12-05] MEDS ORDERED: GUAIFENESIN 200MG/10ML SUGAR FREE UDC PO PRN (14:15)
[2024-12-05] MEDS ORDERED: DEXT 5%/0.45% NACL 1000ML 1,000 ML IV SCH (14:30)
[2024-12-05 15:05] VITALS: BP 163/60; PULSE 101; RESP 18; TEMP 36.4; TEMP 36.418; O2SAT 94
[2024-12-05 16:00] VITALS: BP 163/60; PULSE 101; RESP 18; TEMP 36.4; O2SAT 94
[2024-12-05] MEDS: AMLODIPINE 10MG TABLET PO SCH (17:34)
[2024-12-05] MEDS: PANTOPRAZOLE 40MG DR TABLET PO SCH (17:34)
[2024-12-05] MEDS: DEXTROSE 50% WATER 50ML SYRINGE IV PRN (17:42)
[2024-12-05 20:00] VITALS: BP 151/62; PULSE 103; RESP 18; TEMP 36.6; O2SAT 95
[2024-12-05] MEDS ORDERED: SITA100T11 PO (20:53)
[2024-12-05] MEDS ORDERED: FINE10TA PO (20:53)
[2024-12-05] MEDS ORDERED: GLIP10TA17 PO (20:53)
[2024-12-05] MEDS: ATORVASTATIN CALCIUM 40MG TABLET PO SCH (21:51)
[2024-12-06] VITALS (9 sets, daily range): BP systolic 140–169; BP diastolic 64–72; PULSE 88–117; RESP 17–20; TEMP 36.3–36.6; O2SAT 86–100
[2024-12-06] MEDS: IPRATROPIUM/ALBUTEROL 0.5-3(2.5)MG/3ML NEB HHN PRN (05:55)
[2024-12-06 08:31] LABS: BASOPHILS % 0.9 % (0.0-2.0); EOSINOPHILS % 4.7 % (0.0-5.0); HEMATOCRIT. 26.2 % (36.0-48.0); HEMOGLOBIN. 8.4 g/dL (12.0-16.0); LYMPHOCYTES % 11.9 % (20.0-50.0); MEAN PLATELET VOLUME 8.0 fl (7.4-10.4); MONOCYTES % 9.1 % (2.0-8.0); NEUTROPHILS % 73.4 % (40.0-76.0); PLATELET 330 x1000/uL (130-400); RED BLOOD CELL COUNT 3.05 mill/uL (4.2-5.4); RED CELL DISTRIBUTION WIDTH 17.3 % (11.6-14.6)
[2024-12-06 08:56] LABS: CREATININE 3.9 mg/dL (0.6-1.0); TRIGLYCERIDE 103.0 mg/dL (0-150); UREA NITROGEN BLOOD 49.0 mg/dL (9-23)
[2024-12-06 08:57] LABS: LDL CHOLESTEROL 81.0 mg/dL (5-100)
[2024-12-06] MEDS: ACETAMINOPHEN 325MG TABLET PO PRN (08:59)
[2024-12-06] MEDS: METOPROLOL SUCCINATE 50MG ER TABLET PO SCH (09:00)
[2024-12-06] MEDS: ENOXAPARIN 40MG/0.4ML SYR SUBCUT SCH (09:01)
[2024-12-06] MEDS: RISPERIDONE 1MG TABLET PO SCH (20:31)
[2024-12-06] MEDS: FUROSEMIDE 40MG TABLET PO SCH (20:31)
[2024-12-06] MEDS: MONTELUKAST SODIUM 10MG TABLET PO SCH (20:32)
[2024-12-07] VITALS (10 sets, daily range): BP systolic 122–188; BP diastolic 54–99; PULSE 89–108; RESP 18–20; TEMP 36.4–37.3; O2SAT 85–99
[2024-12-07] MEDS: CLONIDINE 0.1MG TABLET PO PRN (18:10)
[2024-12-07] MEDS ORDERED: DEXTROSE 50% WATER 50ML SYRINGE IV PRN (18:15)
[2024-12-07] MEDS: HYDRALAZINE HCL 25MG TABLET PO PRN (20:25)
[2024-12-07] MEDS: INSULIN LISPRO 100 UNITS/ML SUBCUT SCH (20:34)
[2024-12-07] MEDS: BLOOD SUGAR DIAGNOSTIC STRIP TEST SCH (20:34)
[2024-12-08] VITALS (7 sets, daily range): BP systolic 125–160; BP diastolic 55–68; PULSE 89–108; RESP 18–20; TEMP 36.4–36.8; O2SAT 95–99
[2024-12-08 00:32] LABS: CREATININE 3.9 mg/dL (0.6-1.0); UREA NITROGEN BLOOD 46 mg/dL (9-23)
[2024-12-08 00:34] LABS: ASPARTATE AMINOTRANSFERASE 18 IU/L (<34); BILIRUBIN TOTAL 0.5 mg/dL (0.1-1.0); PHOSPHORUS 3.7 mg/dL (2.5-4.9); PROTEIN TOTAL 6.6 g/dL (6.0-8.3)
[2024-12-08] MEDS: EMPAGLIFLOZIN 25MG TABLET PO SCH (01:15)
[2024-12-08] MEDS: CARVEDILOL 3.125 MG TABLET PO SCH (01:21)
[2024-12-08] MEDS: HYDRALAZINE HCL 50MG TABLET PO SCH (06:30)
[2024-12-09] VITALS: BP 152/60; PULSE 105; RESP 19; TEMP 36.9; O2SAT 94
[2024-12-09 04:00] VITALS: BP 144/69; PULSE 104; RESP 18; TEMP 36.7; O2SAT 95
[2024-12-09 06:52] VITALS: PULSE 88; RESP 18; O2SAT 93
[2024-12-09 08:00] VITALS: BP 141/51; PULSE 104; RESP 20; TEMP 36.8; O2SAT 97
[2024-12-09 12:00] VITALS: BP 139/64; PULSE 98; RESP 20; TEMP 36.6; O2SAT 100
[2024-12-09 16:08] VITALS: BP 139/64; PULSE 98; RESP 18; TEMP 97.8
== END 2024-12-09 16:45 | disposition home or self-care (01) | DRG 304 ==
LOC: ER 03:39 → 6WST 06:44 → EDBEDREQ 06:49 → EDBEDREQTM 06:49 → CANRESERV 11:27 → ENRESERV 11:27 → 6EST 12-09 01:33
PROVIDERS: ADMIT Internal Medicine; ATTEND Internal Medicine
DX: I16.1 Hypertensive emergency (principal); J96.00 Acute respiratory failure, unspecified whether with hypoxia or hypercapnia; G45.9 Transient cerebral ischemic attack, unspecified; N18.5 Chronic kidney disease, stage 5; I50.32 Chronic diastolic (congestive) heart failure; N17.9 Acute kidney failure, unspecified; J45.901 Unspecified asthma with (acute) exacerbation; I13.2 Hypertensive heart and chronic kidney disease with heart failure and with stage 5 chronic kidney disease, or end stage renal disease; E78.5 Hyperlipidemia, unspecified; E11.22 Type 2 diabetes mellitus with diabetic chronic kidney disease; D64.9 Anemia, unspecified; E11.649 Type 2 diabetes mellitus with hypoglycemia without coma; Z79.02 Long term (current) use of antithrombotics/antiplatelets; Z79.82 Long term (current) use of aspirin
CPT/HCPCS: 36415; 70496; 70498; 70551; 71045; 80048; 80053; 80061; 80076; 80305; 80320; 81003; 82962; 83036; 83735; 83880; 84100; 84443; 84484; 85025; 92523; 92610; 93005; 94070; 94640; 94760; 97165; 99291; A4606; J1650; J1815; Q9967; G0480

== ENCOUNTER 2024-12-17 11:30 | Inpatient (IN) | payer MEDICARE, MEDICAID ==
[~2024-12-17] VITALS: Ht 152.4 cm; Wt 79.8 kg
[~2024-12-17 11:30] MED LIST changes: +FINE10TA PO; -LANTUSUD SUBCUT; -METH4TAB95 MT; +SITA100T11 PO; -SITA50TA3 PO
[2024-12-17] MEDS: ALBUTEROL (0.5%) 2.5MG/0.5ML NEB HHN ONE (11:40)
[2024-12-17] MEDS: SODIUM CHLORIDE 0.9% (SEPSIS BOLUS) IV ONE (13:04)
[2024-12-17] MEDS: ACETAMINOPHEN 1000MG/100ML 100 ML IV ONE (13:23)
[2024-12-17] MEDS: PIPERACILLIN/TAZO 3.375G/50ML 50 ML IV ONE (13:25)
[2024-12-17 13:30] LABS: HEMATOCRIT. 25.1 % (36.0-48.0); HEMOGLOBIN. 8.0 g/dL (12.0-16.0); MEAN PLATELET VOLUME 7.9 fl (7.4-10.4); PLATELET 476 x1000/uL (130-400); RED BLOOD CELL COUNT 3.02 mill/uL (4.2-5.4); RED CELL DISTRIBUTION WIDTH 17.7 % (11.6-14.6)
[2024-12-17 13:55] LABS: CREATININE 4.1 mg/dL (0.6-1.0); UREA NITROGEN BLOOD 49 mg/dL (9-23)
[2024-12-17 13:57] LABS: ASPARTATE AMINOTRANSFERASE 25 IU/L (<34); BILIRUBIN DIRECT 0.2 mg/dL (<=3.0); BILIRUBIN TOTAL 0.4 mg/dL (0.1-1.0); PROTEIN TOTAL 7.1 g/dL (6.0-8.3)
[2024-12-17 13:58] LABS: INR 1.1
[2024-12-17 13:59] LABS: TROPONIN I HIGH SENSITIVITY 234 ng/L (3.0-34)
[2024-12-17] MEDS ORDERED: SODIUM BICARBONATE 8.4% 50MEQ/50ML VIAL IV ONE (14:00)
[2024-12-17] MEDS: VANCOMYCIN 1G PREMIX 200 ML IV ONE (14:11)
[2024-12-17 14:13] LABS: LYMPHOCYTES % MANUAL 6.0 % (20.0-60.0); MONOCYTES % MANUAL 9.0 % (2.0-8.0); NEUTROPHILS % MANUAL 85.0 % (45.0-75.0)
[2024-12-17 14:14] LABS: PLATELET ESTIMATE SLIGHTLY INCREASED
[2024-12-17] MEDS ORDERED: DOCUSATE SODIUM 100MG CAPSULE PO PRN (14:30)
[2024-12-17] MEDS ORDERED: ONDANSETRON HCL 4MG/2ML INJ IV PRN (14:30)
[2024-12-17] MEDS ORDERED: ACETAMINOPHEN 325MG TABLET PO PRN ×2 (14:30→18:30)
[2024-12-17] MEDS ORDERED: GUAIFENESIN 200MG/10ML SUGAR FREE UDC PO PRN (14:30)
[2024-12-17] MEDS ORDERED: IPRATROPIUM/ALBUTEROL 0.5-3(2.5)MG/3ML NEB HHN PRN (14:30)
[2024-12-17] MEDS: SODIUM BICARBONATE 8.4% 50MEQ/50ML SYR IV NR (14:37)
[2024-12-17] MEDS: CALCIUM GLUCONATE 100MG/ML 10ML VIAL IV ONE (14:37)
[2024-12-17] MEDS: DEXTROSE 50% WATER 50ML SYRINGE IV ONE (14:38)
[2024-12-17] MEDS: INSULIN REGULAR (HUMULIN R) 1000UNITS/10ML VIAL IV ONE (14:46)
[2024-12-17 16:20] LABS: CLARITY URINE CLEAR (CLEAR); COLOR URINE YELLOW (YELLOW); GLUCOSE URINE 3+ (NEGATIVE); KETONES URINE NEGATIVE (NEGATIVE); LEUKOCYTE ESTERASE URINE NEGATIVE (NEGATIVE); NITRITE URINE NEGATIVE (NEGATIVE); OCCULT BLOOD URINE 1+ (NEGATIVE); PH URINE 6.0 (4.5-8.0); PROTEIN URINE 3+ (NEGATIVE); SPECIFIC GRAVITY URINE 1.018 (1.005-1.030); UROBILINOGEN URINE 0.2 E.U./dL (0.2-1.0)
[2024-12-17 16:23] LABS: *AMPHETAMINES SCREEN URINE NEGATIVE (NEGATIVE); *BARBITURATES SCREEN URINE NEGATIVE (NEGATIVE); *BENZODIAZEPINES SCREEN URINE NEGATIVE (NEGATIVE); *COCAINE SCREEN URINE NEGATIVE (NEGATIVE); CANNABINOID URINE SCREEN NEGATIVE (NEGATIVE); ECSTASY MDMA SCREEN URINE NEGATIVE (NEGATIVE); METHADONE URINE SCREEN NEGATIVE (NEGATIVE); OPIATES URINE SCREEN NEGATIVE (NEGATIVE); PHENCYCLIDINE URINE SCREEN NEGATIVE (NEGATIVE)
[2024-12-17 16:36] LABS: BACTERIA URINE TRACE; SQUAMOUS EPITHELIAL CELL URINE 1+ /lpf (RARE/1+); WBC URINE 0-2 /hpf (0-2)
[2024-12-17] MEDS ORDERED: NITROGLYCERIN 0.1MG/HR PATCH TOP SCH (17:00)
[2024-12-17 17:02] LABS: TROPONIN I HIGH SENSITIVITY 360 ng/L (3.0-34)
[2024-12-17] MEDS ORDERED: CEFEPIME 500 MG in DEXTROSE 5% WATER 50 ML IV SCH (18:00)
[2024-12-17 18:06] VITALS: BP 150/78; PULSE 117; RESP 20; TEMP 37; O2SAT 97
[2024-12-17] MEDS: ASPIRIN 81MG TABLET PO SCH (18:07)
[2024-12-17] MEDS: AMLODIPINE 10MG TABLET PO SCH (18:07)
[2024-12-17] MEDS: EMPAGLIFLOZIN 10MG TABLET PO SCH (18:08)
[2024-12-17] MEDS: GLIPIZIDE 10MG TABLET PO SCH (18:08)
[2024-12-17] MEDS: FUROSEMIDE 40MG TABLET PO SCH (18:08)
[2024-12-17] MEDS: METOPROLOL SUCCINATE 50MG ER TABLET PO SCH (18:08)
[2024-12-17 18:29] VITALS: BP 150/78; PULSE 117; RESP 20; TEMP 37.0296
[2024-12-17] MEDS ORDERED: CLONIDINE 0.1MG TABLET PO PRN (18:45)
[2024-12-17 20:00] VITALS: BP 158/73; PULSE 99; RESP 20; TEMP 36.7; O2SAT 97
[2024-12-17] MEDS ORDERED: PIPERACILLIN/TAZO 3.375G/50ML 50 ML IV SCH (21:00)
[2024-12-17] MEDS ORDERED: ATORVASTATIN CALCIUM 20MG TABLET PO SCH (21:00)
[2024-12-17] MEDS: ACETAMINOPHEN 325MG TABLET PO PRN (21:28)
[2024-12-17] MEDS: LIDOCAINE 5% PATCH TOP SCH (21:30)
[2024-12-17] MEDS: ATORVASTATIN CALCIUM 40MG TABLET PO SCH (21:30)
[2024-12-17] MEDS: VANCOMYCIN 500 MG in DEXT 5% WATER 100 ML IV SCH (21:31)
[2024-12-17] MEDS: SODIUM CHLORIDE 0.9% 1,000 ML IV ONE (21:31)
[2024-12-17] MEDS: INSULIN LISPRO 100 UNITS/ML SUBCUT SCH (21:40)
[2024-12-17] MEDS: BLOOD SUGAR DIAGNOSTIC STRIP TEST SCH (21:41)
[2024-12-17] MEDS ORDERED: HYDRALAZINE HCL 50MG TABLET PO SCH (22:00)
[2024-12-17] MEDS: HYDRALAZINE HCL 25MG TABLET PO SCH (22:06)
[2024-12-17] MEDS: CEFEPIME 2GM PREMIX 100ML IV SCH (22:06)
[2024-12-18] VITALS (8 sets, daily range): BP systolic 117–147; BP diastolic 52–78; PULSE 87–103; RESP 18–22; TEMP 35.6–36.9; O2SAT 93–98
[2024-12-18 00:43] LABS: TROPONIN I HIGH SENSITIVITY 499 ng/L (3.0-34)
[2024-12-18] MEDS: ALBUTEROL (0.083%) 2.5MG/3ML NEB HHN SCH (01:15)
[2024-12-18] MEDS: BUDESONIDE 0.5MG/2ML NEB HHN SCH (01:15)
[2024-12-18] MEDS ORDERED: EMPAGLIFLOZIN 10MG TABLET PO SCH (09:00)
[2024-12-18] MEDS ORDERED: METOPROLOL SUCCINATE 50MG ER TABLET PO SCH ×2 (09:00)
[2024-12-18] MEDS ORDERED: AMLODIPINE 10MG TABLET PO SCH (09:00)
[2024-12-18] MEDS ORDERED: FUROSEMIDE 40MG TABLET PO SCH (09:00)
[2024-12-18] MEDS ORDERED: FLUTICASONE/VILANTEROL 200-25 BLST.W.DEV ORI SCH (09:00)
[2024-12-18] MEDS: PANTOPRAZOLE SODIUM 40 MG/VIAL IV SCH (09:48)
[2024-12-18] MEDS: CLOPIDOGREL 75MG TABLET PO SCH (09:48)
[2024-12-18 10:29] LABS: BASOPHILS % 0.6 % (0.0-2.0); EOSINOPHILS % 0.3 % (0.0-5.0); LYMPHOCYTES % 8.3 % (20.0-50.0); MEAN PLATELET VOLUME 8.2 fl (7.4-10.4); MONOCYTES % 13.3 % (2.0-8.0); NEUTROPHILS % 77.5 % (40.0-76.0); PLATELET 394 x1000/uL (130-400); RED BLOOD CELL COUNT 2.58 mill/uL (4.2-5.4); RED CELL DISTRIBUTION WIDTH 16.7 % (11.6-14.6)
[2024-12-18 10:39] LABS: CREATININE 3.9 mg/dL (0.6-1.0); UREA NITROGEN BLOOD 42.0 mg/dL (9-23)
[2024-12-18 10:47] LABS: HEMATOCRIT. 21.0 % (36.0-48.0); HEMOGLOBIN. 7.0 g/dL (12.0-16.0)
[2024-12-18] MEDS: VANCOMYCIN 500MG/100ML IV SCH (10:52)
[2024-12-18] MEDS: SODIUM CHLORIDE 0.9% 1,000 ML IV ONE (14:30)
[2024-12-18 17:28] LABS: TROPONIN I HIGH SENSITIVITY 136 ng/L (3.0-34)
[2024-12-18] MEDS: DEXTROSE 50% WATER 50ML SYRINGE IV PRN (18:06)
[2024-12-18] MEDS: CEFEPIME 2GM PREMIX 100ML IV SCH (20:34)
[2024-12-18 23:23] LABS: CLARITY URINE CLOUDY (CLEAR); COLOR URINE YELLOW (YELLOW); GLUCOSE URINE 1+ (NEGATIVE); KETONES URINE NEGATIVE (NEGATIVE); LEUKOCYTE ESTERASE URINE TRACE (NEGATIVE); NITRITE URINE NEGATIVE (NEGATIVE); OCCULT BLOOD URINE NEGATIVE (NEGATIVE); PH URINE 5.5 (4.5-8.0); PROTEIN URINE 3+ (NEGATIVE); SPECIFIC GRAVITY URINE 1.014 (1.005-1.030); UROBILINOGEN URINE 0.2 E.U./dL (0.2-1.0)
[2024-12-18] MEDS: DEXT 5%/0.9% NACL 1,000 ML IV SCH (23:25)
[2024-12-19] VITALS: BP 138/60; PULSE 80; RESP 18; TEMP 36.8; O2SAT 98
[2024-12-19 00:02] LABS: SQUAMOUS EPITHELIAL CELL URINE FEW /lpf (RARE/1+)
[2024-12-19 00:03] LABS: RBC URINE 0-2 /hpf (0-2)
[2024-12-19 00:04] LABS: BACTERIA URINE NONE SEEN
[2024-12-19] MEDS: MORPHINE SULFATE 4 MG/ML INJ (FOR IV/IM USE) IV SCH (01:57)
[2024-12-19 04:00] VITALS: BP 129/59; PULSE 89; RESP 18; TEMP 36.7; O2SAT 97
[2024-12-19] MEDS: DEXTROSE 50% WATER 50ML SYRINGE IV PRN (07:04)
[2024-12-19 07:07] LABS: BASOPHILS % 0.5 % (0.0-2.0); EOSINOPHILS % 1.0 % (0.0-5.0); HEMATOCRIT. 21.3 % (36.0-48.0); LYMPHOCYTES % 8.4 % (20.0-50.0); MEAN PLATELET VOLUME 8.4 fl (7.4-10.4); MONOCYTES % 12.4 % (2.0-8.0); NEUTROPHILS % 77.7 % (40.0-76.0); PLATELET 434 x1000/uL (130-400); RED BLOOD CELL COUNT 2.57 mill/uL (4.2-5.4); RED CELL DISTRIBUTION WIDTH 17.0 % (11.6-14.6)
[2024-12-19 07:36] LABS: CREATININE 4.1 mg/dL (0.6-1.0); UREA NITROGEN BLOOD 46.0 mg/dL (9-23)
[2024-12-19 08:00] VITALS: BP 135/57; PULSE 91; RESP 19; TEMP 37.6; O2SAT 97
[2024-12-19 08:33] LABS: HEMOGLOBIN. 6.9 g/dL (12.0-16.0)
[2024-12-19 12:00] VITALS: BP 107/46; PULSE 86; RESP 18; TEMP 37.5; O2SAT 97
[2024-12-19] MEDS ORDERED: NALOXONE HCL 0.4MG/ML VIAL IV PRN (12:45)
[2024-12-19] MEDS: HYDROCODONE/ACETAMINOPHEN 5/325MG TABLET PO PRN (12:52)
[2024-12-19 14:33] LABS: PHOSPHORUS 4.3 mg/dL (2.5-4.9)
[2024-12-19 16:00] VITALS: BP 125/57; PULSE 81; RESP 19; TEMP 37.2; O2SAT 97
[2024-12-19 20:00] VITALS: BP 131/59; PULSE 84; RESP 20; TEMP 36.8; O2SAT 97
[2024-12-19] MEDS: VANCOMYCIN 500MG PREMIX 100 ML IV SCH (21:35)
[2024-12-20] VITALS: BP 130/80; PULSE 88; RESP 20; TEMP 36.7; O2SAT 97
[2024-12-20 04:00] VITALS: BP 125/59; PULSE 85; RESP 18; TEMP 36.9; O2SAT 97
[2024-12-20 08:10] VITALS: BP 124/57; PULSE 90; RESP 20; TEMP 36.9; O2SAT 95
[2024-12-20] MEDS: SULFAMETHOXAZOLE/TRIMETHOPRIM 400/80MG TAB PO SCH (11:15)
[2024-12-20 11:50] LABS: HEMATOCRIT. 22.6 % (36.0-48.0); HEMOGLOBIN. 7.3 g/dL (12.0-16.0); MEAN PLATELET VOLUME 8.1 fl (7.4-10.4); PLATELET 446 x1000/uL (130-400); RED BLOOD CELL COUNT 2.73 mill/uL (4.2-5.4); RED CELL DISTRIBUTION WIDTH 17.4 % (11.6-14.6)
[2024-12-20] MEDS ORDERED: CEFAZOLIN 2000MG PREMIX 50 ML IV SCH (12:00)
[2024-12-20 12:12] LABS: CREATININE 4.3 mg/dL (0.6-1.0); UREA NITROGEN BLOOD 49.0 mg/dL (9-23)
[2024-12-20] MEDS: SODIUM BICARBONATE 650MG TABLET PO SCH (13:24)
[2024-12-20 14:06] VITALS: PULSE 88; RESP 20; O2SAT 98
[2024-12-20 16:05] VITALS: BP 121/48; PULSE 88; RESP 20; TEMP 36.4; O2SAT 95
[2024-12-20] MEDS: CEFAZOLIN 2000MG PREMIX 50 ML IV SCH (16:26)
[2024-12-20 20:00] VITALS: BP 125/70; PULSE 82; RESP 18; TEMP 37; O2SAT 98
[2024-12-20 22:18] LABS: FOLIC ACID (FOLATE) SERUM 14.50 ng/mL (>5.38)
[2024-12-20 22:19] LABS: VITAMIN B12 SERUM 472 pg/mL (211-911)
[2024-12-20 22:30] LABS: EOSINOPHILS % MANUAL 1.0 % (0.0-5.0); LYMPHOCYTES % MANUAL 9.0 % (20.0-60.0); MONOCYTES % MANUAL 12.0 % (2.0-8.0); NEUTROPHILS % MANUAL 78.0 % (45.0-75.0); PLATELET ESTIMATE INCREASED
[2024-12-21] VITALS: BP 125/70; PULSE 82; RESP 18; TEMP 37; O2SAT 98
[2024-12-21 04:00] VITALS: BP 137/55; PULSE 89; RESP 20; TEMP 37; O2SAT 98
[2024-12-21 07:02] LABS: MEAN PLATELET VOLUME 8.1 fl (7.4-10.4); PLATELET 434 x1000/uL (130-400); RED BLOOD CELL COUNT 2.30 mill/uL (4.2-5.4); RED CELL DISTRIBUTION WIDTH 17.2 % (11.6-14.6)
[2024-12-21 07:29] LABS: CREATININE 4.3 mg/dL (0.6-1.0); UREA NITROGEN BLOOD 56.0 mg/dL (9-23)
[2024-12-21 07:43] LABS: HEMOGLOBIN. 5.9 g/dL (12.0-16.0)
[2024-12-21 07:44] LABS: HEMATOCRIT. 18.7 % (36.0-48.0)
[2024-12-21] MEDS: HYDROCODONE/ACETAMINOPHEN 5/325MG TABLET PO NR (10:36)
[2024-12-21 12:00] VITALS: BP 130/58; PULSE 83; RESP 20; TEMP 36.5; O2SAT 97
[2024-12-21 16:00] VITALS: BP 143/67; PULSE 80; RESP 18; TEMP 36.6; O2SAT 96
[2024-12-21 18:40] LABS: LYMPHOCYTES % MANUAL 10.0 % (20.0-60.0); MONOCYTES % MANUAL 8.0 % (2.0-8.0); NEUTROPHILS % MANUAL 82.0 % (45.0-75.0); PLATELET ESTIMATE NORMAL
[2024-12-21 20:00] VITALS: BP 157/63; PULSE 91; RESP 18; TEMP 36.4; O2SAT 99
[2024-12-21] MEDS: MUPIROCIN 2% OINT 22GM NS SCH (22:04)
[2024-12-22] VITALS (9 sets, daily range): BP systolic 121–140; BP diastolic 54–74; PULSE 64–88; RESP 15–19; TEMP 36.3–36.7; O2SAT 92–100
[2024-12-22] MEDS ORDERED: FERROUS SULFATE 325MG TABLET PO SCH (07:40)
[2024-12-22 16:16] LABS: MEAN PLATELET VOLUME 8.2 fl (7.4-10.4); PLATELET 521 x1000/uL (130-400); RED BLOOD CELL COUNT 2.40 mill/uL (4.2-5.4); RED CELL DISTRIBUTION WIDTH 17.5 % (11.6-14.6)
[2024-12-22 16:21] LABS: HEMATOCRIT. 19.5 % (36.0-48.0); HEMOGLOBIN. 6.3 g/dL (12.0-16.0)
[2024-12-22 16:34] LABS: CREATININE 4.3 mg/dL (0.6-1.0); UREA NITROGEN BLOOD 59.0 mg/dL (9-23)
[2024-12-22 16:59] LABS: LYMPHOCYTES % MANUAL 13.0 % (20.0-60.0); MONOCYTES % MANUAL 8.0 % (2.0-8.0); NEUTROPHILS % MANUAL 79.0 % (45.0-75.0)
[2024-12-22 17:00] LABS: PLATELET ESTIMATE INCREASED
[2024-12-22] MEDS: ENOXAPARIN 40MG/0.4ML SYR SUBCUT SCH (17:30)
[2024-12-23] VITALS: BP 136/66; PULSE 86; RESP 19; TEMP 36.7; O2SAT 96
[2024-12-23 04:00] VITALS: BP 129/60; PULSE 85; RESP 19; TEMP 36.4; O2SAT 96
[2024-12-23 08:00] VITALS: BP 124/50; PULSE 86; RESP 18; TEMP 36.7; O2SAT 96
[2024-12-23] MEDS: CALCIUM 1250MG TABLET (500MG ELEMENTAL CALCIUM) PO NR (09:28)
[2024-12-23] MEDS ORDERED: NON FORMULARY MED XX SCH ×2 (10:00→10:15)
[2024-12-23] MEDS: SODIUM BICARBONATE 100 MEQ in SODIUM CHLORIDE 0.45% 900 ML IV SCH (10:19)
[2024-12-23 12:00] VITALS: BP 126/53; PULSE 76; RESP 18; TEMP 36.7; O2SAT 97
[2024-12-23] MEDS ORDERED: IRON SUCROSE COMPLEX 100 MG/5 ML ML IV SCH (12:00)
[2024-12-23] MEDS: IRON SUCROSE COMPLEX 100 MG/5 ML ML IV SCH (13:53)
[2024-12-23 16:00] VITALS: BP 141/60; PULSE 90; RESP 18; TEMP 36.5; O2SAT 97
[2024-12-23 20:00] VITALS: BP 126/60; PULSE 90; RESP 18; TEMP 36.2; O2SAT 98
[2024-12-23] MEDS: EPOETIN ALFA-EPBX 4,000 UNITS/ML VIAL SUBCUT SCH (21:21)
[2024-12-24] VITALS: BP 120/68; PULSE 92; RESP 18; TEMP 36.6; O2SAT 97
[2024-12-24 04:00] VITALS: BP 130/61; PULSE 88; RESP 18; TEMP 36.7; O2SAT 97
[2024-12-24 08:00] VITALS: BP 137/57; PULSE 84; RESP 18; TEMP 36.8; O2SAT 97
[2024-12-24 11:00] LABS: MEAN PLATELET VOLUME 8.1 fl (7.4-10.4); PLATELET 560 x1000/uL (130-400); RED BLOOD CELL COUNT 2.42 mill/uL (4.2-5.4); RED CELL DISTRIBUTION WIDTH 17.2 % (11.6-14.6)
[2024-12-24 11:10] LABS: CREATININE 4.0 mg/dL (0.6-1.0); UREA NITROGEN BLOOD 61.0 mg/dL (9-23)
[2024-12-24 11:23] LABS: HEMATOCRIT. 19.5 % (36.0-48.0); HEMOGLOBIN. 6.3 g/dL (12.0-16.0)
[2024-12-24 12:00] VITALS: BP 133/64; PULSE 82; RESP 18; TEMP 36.7; O2SAT 96
[2024-12-24 16:00] VITALS: BP 142/89; PULSE 83; RESP 18; TEMP 36.5; O2SAT 96
[2024-12-24 17:16] LABS: BAND% 4.0 % (1.0-6.0); EOSINOPHILS % MANUAL 3.0 % (0.0-5.0); LYMPHOCYTES % MANUAL 6.0 % (20.0-60.0); MONOCYTES % MANUAL 5.0 % (2.0-8.0); NEUTROPHILS % MANUAL 82.0 % (45.0-75.0)
[2024-12-24 17:17] LABS: PLATELET ESTIMATE INCREASED
[2024-12-24 20:00] VITALS: BP 145/54; PULSE 84; RESP 20; TEMP 36.4; O2SAT 97
[2024-12-24] MEDS ORDERED: NALOXONE HCL 0.4MG/ML VIAL IV PRN (20:00)
[2024-12-24] MEDS: TRAMADOL HCL/ACETAMINOPHEN 37.5/325MG TABLET PO PRN (21:05)
[2024-12-25] VITALS: BP 109/49; PULSE 89; RESP 20; TEMP 36.9; O2SAT 95
[2024-12-25 08:00] VITALS: BP 104/42; PULSE 85; RESP 18; TEMP 36.6; O2SAT 94
[2024-12-25 12:00] VITALS: BP 139/57; PULSE 81; RESP 18; TEMP 36.6; O2SAT 95
[2024-12-25 20:00] VITALS: BP 131/57; PULSE 81; RESP 18; TEMP 35.6; O2SAT 95
[2024-12-26] VITALS: BP 130/60; PULSE 80; RESP 20; TEMP 36.9; O2SAT 96
[2024-12-26 04:00] VITALS: BP 130/54; PULSE 80; RESP 19; TEMP 36.3; O2SAT 95
[2024-12-26] MEDS ORDERED: LIDOCAINE HCL 1% 10 MG/ML 10ML VIAL ONE (08:09)
[2024-12-26 11:11] LABS: MEAN PLATELET VOLUME 7.8 fl (7.4-10.4); PLATELET 498 x1000/uL (130-400); RED BLOOD CELL COUNT 2.36 mill/uL (4.2-5.4); RED CELL DISTRIBUTION WIDTH 17.6 % (11.6-14.6)
[2024-12-26 11:28] LABS: HEMATOCRIT. 19.4 % (36.0-48.0); HEMOGLOBIN. 6.3 g/dL (12.0-16.0)
[2024-12-26 11:30] LABS: CREATININE 3.4 mg/dL (0.6-1.0); UREA NITROGEN BLOOD 52.0 mg/dL (9-23)
[2024-12-26 12:00] VITALS: BP 128/48; PULSE 81; RESP 18; TEMP 36.7; O2SAT 98
[2024-12-26] MEDS ORDERED: HEPARIN 1000 UNITS/ML 10ML ONE (12:07)
[2024-12-26] MEDS ORDERED: IODIXANOL 320MG/ML 100 ML BOTTLE IV ONE (12:08)
[2024-12-26] MEDS ORDERED: LIDOCAINE HCL 1% 20ML VIAL ONE (12:08)
[2024-12-26] MEDS ORDERED: FENTANYL CITRATE/PF 50MCG/ML 2ML VIAL ONE (12:36)
[2024-12-26] MEDS ORDERED: MIDAZOLAM HCL 2 MG/2 ML VIAL ONE (12:36)
[2024-12-26] MEDS ORDERED: DIPHENHYDRAMINE 50MG/ML VIAL ONE (12:37)
[2024-12-26 16:00] VITALS: BP 138/56; PULSE 85; RESP 18; TEMP 36.5; O2SAT 97
[2024-12-26 20:00] VITALS: BP 139/60; PULSE 94; RESP 18; TEMP 36.7; O2SAT 98
[2024-12-26 20:00] LABS: EOSINOPHILS % MANUAL 3.0 % (0.0-5.0); LYMPHOCYTES % MANUAL 4.0 % (20.0-60.0); MONOCYTES % MANUAL 2.0 % (2.0-8.0); NEUTROPHILS % MANUAL 91.0 % (45.0-75.0); PLATELET ESTIMATE INCREASED
[2024-12-27] VITALS: BP 116/56; PULSE 84; RESP 18; TEMP 37; O2SAT 97
[2024-12-27 04:00] VITALS: BP 146/60; PULSE 94; RESP 18; TEMP 36.7; O2SAT 95
[2024-12-27 08:00] VITALS: BP 135/57; PULSE 91; RESP 18; TEMP 37.1; O2SAT 95
[2024-12-27] MEDS ORDERED: TETRACAINE/BENZOCAINE/BUTAMBEN 20 GM SPRAY MM ONE (08:12)
[2024-12-27] MEDS ORDERED: LIDOCAINE 2% 6ML GLYDO ONE (08:12)
[2024-12-27 12:00] VITALS: BP 146/53; PULSE 87; RESP 18; TEMP 36.9; O2SAT 96
[2024-12-27 13:00] LABS: BASOPHILS % 0.5 % (0.0-2.0); EOSINOPHILS % 1.2 % (0.0-5.0); LYMPHOCYTES % 7.7 % (20.0-50.0); MEAN PLATELET VOLUME 7.8 fl (7.4-10.4); MONOCYTES % 7.7 % (2.0-8.0); NEUTROPHILS % 82.9 % (40.0-76.0); PLATELET 486 x1000/uL (130-400); RED BLOOD CELL COUNT 2.35 mill/uL (4.2-5.4); RED CELL DISTRIBUTION WIDTH 17.5 % (11.6-14.6)
[2024-12-27 13:20] LABS: CREATININE 2.9 mg/dL (0.6-1.0); UREA NITROGEN BLOOD 47.0 mg/dL (9-23)
[2024-12-27 13:28] LABS: HEMOGLOBIN. 6.4 g/dL (12.0-16.0)
[2024-12-27 13:29] LABS: HEMATOCRIT. 19.5 % (36.0-48.0)
[2024-12-27 16:00] VITALS: BP 131/46; PULSE 101; RESP 18; TEMP 36.7; O2SAT 96
[2024-12-27 20:00] VITALS: BP 152/60; PULSE 97; RESP 19; TEMP 36.8; O2SAT 98
[2024-12-28] VITALS: BP 155/55; PULSE 106; RESP 19; TEMP 37.5; O2SAT 99
[2024-12-28 04:00] VITALS: BP 131/50; PULSE 97; RESP 19; TEMP 37.4; O2SAT 98
[2024-12-28 08:00] VITALS: BP 136/55; PULSE 82; RESP 18; TEMP 36.4; O2SAT 98
[2024-12-28 12:00] VITALS: BP 133/50; PULSE 71; RESP 18; TEMP 36.5; O2SAT 98
[2024-12-28] MEDS ORDERED: LIDOCAINE 2% 6ML GLYDO ONE (12:21)
[2024-12-28] MEDS ORDERED: TETRACAINE/BENZOCAINE/BUTAMBEN 20 GM SPRAY MM ONE (12:21)
[2024-12-28] MEDS ORDERED: MIDAZOLAM HCL 2 MG/2 ML VIAL ONE (12:49)
[2024-12-28] MEDS ORDERED: FENTANYL CITRATE/PF 50MCG/ML 2ML VIAL ONE (12:49)
[2024-12-28 16:00] VITALS: BP 147/55; PULSE 100; RESP 19; TEMP 36.8; O2SAT 100
[2024-12-28 20:00] VITALS: BP 127/64; PULSE 105; RESP 20; TEMP 36.2; O2SAT 97
[2024-12-28] MEDS: EPOETIN ALFA-EPBX 10,000 UNITS/ML VIAL SUBCUT SCH (22:10)
[2024-12-29] VITALS: BP 119/47; PULSE 99; RESP 20; TEMP 36.9; O2SAT 99
[2024-12-29 04:00] VITALS: BP 127/46; PULSE 105; RESP 20; TEMP 36.8; O2SAT 99
[2024-12-29 08:30] VITALS: BP 145/73; PULSE 100; RESP 20; TEMP 36.4; O2SAT 95
[2024-12-29 12:00] VITALS: BP 117/55; PULSE 98; RESP 18; TEMP 35.9; O2SAT 98
[2024-12-29 16:00] VITALS: BP 116/43; PULSE 87; RESP 18; TEMP 36.6; O2SAT 98
[2024-12-29 21:00] VITALS: BP 125/41; PULSE 90; RESP 18; TEMP 36.8; O2SAT 98
[2024-12-30] VITALS: BP 114/60; PULSE 92; RESP 18; TEMP 37.1; O2SAT 98
[2024-12-30 06:00] VITALS: BP 124/53; PULSE 92; RESP 18; TEMP 36.6; O2SAT 97
[2024-12-30 08:00] VITALS: BP 131/57; PULSE 95; RESP 20; TEMP 36.8; O2SAT 98
[2024-12-30 12:00] VITALS: BP 127/65; PULSE 87; RESP 19; TEMP 36.6; O2SAT 98
[2024-12-30 14:09] LABS: BASOPHILS % 0.5 % (0.0-2.0); EOSINOPHILS % 1.5 % (0.0-5.0); HEMATOCRIT. 23.0 % (36.0-48.0); HEMOGLOBIN. 7.1 g/dL (12.0-16.0); LYMPHOCYTES % 10.1 % (20.0-50.0); MEAN PLATELET VOLUME 8.0 fl (7.4-10.4); MONOCYTES % 6.7 % (2.0-8.0); NEUTROPHILS % 81.2 % (40.0-76.0); PLATELET 486 x1000/uL (130-400); RED BLOOD CELL COUNT 2.64 mill/uL (4.2-5.4); RED CELL DISTRIBUTION WIDTH 18.8 % (11.6-14.6)
[2024-12-30 14:23] LABS: CREATININE 2.7 mg/dL (0.6-1.0); UREA NITROGEN BLOOD 29.0 mg/dL (9-23)
[2024-12-30 16:00] VITALS: BP 142/79; PULSE 91; RESP 18; TEMP 36; O2SAT 98
[2024-12-30] MEDS: DIPHENHYDRAMINE 25MG CAPSULE PO PRN (16:10)
[2024-12-30] MEDS: LIDOCAINE 5% PATCH TOP SCH (16:10)
[2024-12-30 20:00] VITALS: BP 117/60; PULSE 88; RESP 18; TEMP 36.2; O2SAT 98
[2024-12-31] VITALS: BP 123/53; PULSE 93; RESP 18; TEMP 36.3; O2SAT 94
[2024-12-31 04:00] VITALS: BP 132/54; PULSE 87; RESP 18; TEMP 36.8; O2SAT 94
[2024-12-31 08:00] VITALS: BP 117/40; PULSE 82; RESP 18; TEMP 37.1; O2SAT 97
[2024-12-31 12:00] VITALS: BP 123/48; PULSE 87; RESP 18; TEMP 37.1; O2SAT 97
[2024-12-31 16:00] VITALS: BP 106/40; PULSE 86; RESP 18; TEMP 36.7; O2SAT 97
[2024-12-31 20:00] VITALS: BP 121/58; PULSE 86; RESP 18; TEMP 36.6; O2SAT 96
[2025-01-01] VITALS: PULSE 78; RESP 16; TEMP 36.7; O2SAT 98
[2025-01-01 08:00] VITALS: BP 148/55; PULSE 95; RESP 18; TEMP 37.1
[2025-01-01 12:00] VITALS: BP 136/50; PULSE 90; RESP 18; TEMP 36.9
[2025-01-01 15:22] LABS: BASOPHILS % 0.9 % (0.0-2.0); EOSINOPHILS % 2.0 % (0.0-5.0); LYMPHOCYTES % 13.2 % (20.0-50.0); MEAN PLATELET VOLUME 7.6 fl (7.4-10.4); MONOCYTES % 11.2 % (2.0-8.0); NEUTROPHILS % 72.7 % (40.0-76.0); PLATELET 416 x1000/uL (130-400); RED BLOOD CELL COUNT 2.42 mill/uL (4.2-5.4); RED CELL DISTRIBUTION WIDTH 19.8 % (11.6-14.6)
[2025-01-01 15:25] LABS: HEMATOCRIT. 20.5 % (36.0-48.0); HEMOGLOBIN. 6.7 g/dL (12.0-16.0)
[2025-01-01 15:36] LABS: CREATININE 2.5 mg/dL (0.6-1.0); UREA NITROGEN BLOOD 37.0 mg/dL (9-23)
[2025-01-01 16:00] VITALS: BP 129/91; PULSE 93; RESP 18; TEMP 36.6; O2SAT 94
[2025-01-02 04:00] VITALS: BP 122/60; PULSE 86; RESP 18; TEMP 36.7; O2SAT 98
[2025-01-02 08:00] VITALS: BP 133/83; PULSE 93; RESP 18; TEMP 37.2; O2SAT 93
[2025-01-02 12:00] VITALS: BP 129/60; PULSE 87; RESP 18; TEMP 36.9; O2SAT 96
[2025-01-02 16:00] VITALS: BP 131/55; PULSE 85; RESP 18; TEMP 37.1; O2SAT 97
[2025-01-02] MEDS ORDERED: LINE600T14 MT (16:44)
[2025-01-03 08:00] VITALS: BP 127/52; PULSE 89; RESP 20; TEMP 36.8; O2SAT 99
[2025-01-03 12:00] VITALS: BP 135/62; PULSE 78; RESP 18; TEMP 36.6; O2SAT 96
[2025-01-03 16:00] VITALS: BP 135/54; PULSE 94; RESP 20; TEMP 36.7; O2SAT 93
[2025-01-03 20:00] VITALS: BP 125/77; PULSE 79; RESP 18; TEMP 36.9; O2SAT 98
[2025-01-03] MEDS: LINEZOLID 600MG TABLET PO SCH (20:52)
[2025-01-04 06:48] VITALS: BP 118/54; PULSE 91; RESP 20; TEMP 36.8; O2SAT 97
[2025-01-04 08:00] VITALS: BP 127/64; PULSE 82; RESP 20; TEMP 37; O2SAT 99
[2025-01-04] MEDS ORDERED: HYDROCODONE/ACETAMINOPHEN 5/325MG TABLET PO PRN (10:15)
[2025-01-04] MEDS ORDERED: NALOXONE HCL 0.4MG/ML VIAL IV PRN (10:15)
[2025-01-04 12:47] VITALS: BP 127/64; PULSE 82; RESP 20; TEMP 97.6
== END 2025-01-04 18:09 | disposition home health service (06) | DRG 853 ==
LOC: ER 11:30 → 8WST 13:43 → EDBEDREQTM 14:08 → EDBEDREQ 14:08 → ENRESERV 14:54
PROVIDERS: ADMIT Internal Medicine; ATTEND Internal Medicine
PROC: B548ZZA Ultrasonography of Superior Vena Cava, Guidance (ICD-10-PCS; 2024-12-26)
PROC: 02HV33Z Insertion of Infusion Device into Superior Vena Cava, Percutaneous Approach (ICD-10-PCS; 2024-12-26)
PROC: 047S3ZZ Dilation of Left Posterior Tibial Artery, Percutaneous Approach (ICD-10-PCS; principal; 2024-12-28)
PROC: 047U3ZZ Dilation of Left Peroneal Artery, Percutaneous Approach (ICD-10-PCS; 2024-12-28)
PROC: B41G1ZZ Fluoroscopy of Left Lower Extremity Arteries using Low Osmolar Contrast (ICD-10-PCS; 2024-12-28)
DX: A41.01 Sepsis due to Methicillin susceptible Staphylococcus aureus (principal); I21.A1 Myocardial infarction type 2; N17.0 Acute kidney failure with tubular necrosis; I13.2 Hypertensive heart and chronic kidney disease with heart failure and with stage 5 chronic kidney disease, or end stage renal disease; E87.20 Acidosis, unspecified; E11.22 Type 2 diabetes mellitus with diabetic chronic kidney disease; D50.9 Iron deficiency anemia, unspecified; N18.5 Chronic kidney disease, stage 5; R65.20 Severe sepsis without septic shock; Z68.42 Body mass index [BMI] 45.0-49.9, adult; J45.909 Unspecified asthma, uncomplicated; I50.32 Chronic diastolic (congestive) heart failure; E11.51 Type 2 diabetes mellitus with diabetic peripheral angiopathy without gangrene; E66.813 Obesity, class 3; E87.5 Hyperkalemia; E11.649 Type 2 diabetes mellitus with hypoglycemia without coma; E78.5 Hyperlipidemia, unspecified; K57.30 Diverticulosis of large intestine without perforation or abscess without bleeding; Z53.1 Procedure and treatment not carried out because of patient's decision for reasons of belief and group pressure; N20.0 Calculus of kidney; Z79.84 Long term (current) use of oral hypoglycemic drugs; Z86.73 Personal history of transient ischemic attack (TIA), and cerebral infarction without residual deficits; Z79.899 Other long term (current) drug therapy
CPT/HCPCS: 36415; 36573; 37228; 71045; 72170; 73502; 73560; 75710; 80048; 80076; 80202; 80305; 81003; 82550; 82607; 82728; 82746; 82962; 83540; 83550; 83605; 83880; 84100; 84145; 84484; 85014; 85018; 85025; 85379; 86850; 86900; 86920; 87077; 87186; 93005; 93306; 93312; 93923; 93970; 94070; 94640; 94664; 96365; 96368; 97162; 97165; 97530; 98960; 99291; A4606; C1725; C1769; C1893; C1894; J0612; J0690; J0692; J0885; J1200; J1644; J1650; J1815; J2003; J2250; J2270; J2405; J2470; J2543; J3010; J3373; J3490; J7030; J7042; J7060; J7626; Q0163; Q9967; J0131

== ENCOUNTER 2025-01-11 17:49 | Inpatient (IN) | payer MEDICARE, MEDICAID ==
[~2025-01-11] VITALS: Ht 165.1 cm; Wt 88.1 kg
[~2025-01-11 17:49] MED LIST changes: -FINE10TA PO; +LINE600T14 MT
[2025-01-11] MEDS ORDERED: ALBUTEROL (0.083%) 2.5MG/3ML NEB HHN SCH (18:15)
[2025-01-11] MEDS: IPRATROPIUM BROMIDE (0.02%) 0.5MG/2.5ML NEB HHN SCH (18:17)
[2025-01-11 18:20] VITALS: PULSE 98; RESP 22; O2SAT 98
[2025-01-11 18:33] LABS: BASOPHILS % 1.7 % (0.0-2.0); EOSINOPHILS % 1.8 % (0.0-5.0); HEMATOCRIT. 24.3 % (36.0-48.0); HEMOGLOBIN. 7.7 g/dL (12.0-16.0); LYMPHOCYTES % 14.3 % (20.0-50.0); MEAN PLATELET VOLUME 7.2 fl (7.4-10.4); MONOCYTES % 9.4 % (2.0-8.0); NEUTROPHILS % 72.8 % (40.0-76.0); PLATELET 472 x1000/uL (130-400); RED BLOOD CELL COUNT 2.80 mill/uL (4.2-5.4); RED CELL DISTRIBUTION WIDTH 21.3 % (11.6-14.6)
[2025-01-11] MEDS: METHYLPREDNISOLONE SOD SUCC 125MG/2ML (ACT-O-VIAL) IV ONE (18:35)
[2025-01-11] MEDS: MAGNESIUM 2 G PREMIX 50 ML IV ONE (18:35)
[2025-01-11 18:52] LABS: UREA NITROGEN BLOOD 40 mg/dL (9-23)
[2025-01-11 18:53] LABS: ASPARTATE AMINOTRANSFERASE 14 IU/L (<34); TROPONIN I HIGH SENSITIVITY 11 ng/L (3.0-34)
[2025-01-11 18:54] LABS: BILIRUBIN DIRECT 0.1 mg/dL (<=3.0); BILIRUBIN TOTAL 0.5 mg/dL (0.1-1.0); PROTEIN TOTAL 7.6 g/dL (6.0-8.3)
[2025-01-11 18:55] LABS: CREATININE 3.7 mg/dL (0.6-1.0)
[2025-01-11 21:11] LABS: INR 1.1
[2025-01-11 22:05] VITALS: BP 134/54; PULSE 98; RESP 20; TEMP 36.3; O2SAT 95
[2025-01-11] MEDS ORDERED: CLONIDINE 0.1MG TABLET PO PRN (22:15)
[2025-01-11] MEDS ORDERED: NALOXONE HCL 0.4MG/ML VIAL IV PRN (22:15)
[2025-01-11] MEDS ORDERED: ZOLPIDEM TARTRATE 5MG TABLET PO PRN (22:15)
[2025-01-11] MEDS ORDERED: ONDANSETRON HCL 4MG/2ML INJ IV PRN (22:15)
[2025-01-11] MEDS ORDERED: DEXTROSE 50% WATER 50ML SYRINGE IV PRN (22:15)
[2025-01-11] MEDS ORDERED: MORPHINE SULFATE 4 MG/ML INJ (FOR IV/IM USE) IV PRN (22:15)
[2025-01-11] MEDS ORDERED: ACETAMINOPHEN 325MG TABLET PO PRN (22:15)
[2025-01-11] MEDS ORDERED: MAGNESIUM/ALUMINUM HYDROXIDE/SIMETHICONE 30ML UDC PO PRN (22:15)
[2025-01-11 22:25] VITALS: BP 142/85; PULSE 85; RESP 18; TEMP 36.5292
[2025-01-11] MEDS: METHYLPREDNISOLONE SOD SUCC 40MG/ML (ACT-O-VIAL) IV SCH (23:06)
[2025-01-11] MEDS: AMLODIPINE 10MG TABLET PO SCH (23:06)
[2025-01-11] MEDS ORDERED: IOHEXOL-350 100 ML BOTTLE ONE (23:40)
[2025-01-12] VITALS (8 sets, daily range): BP systolic 102–136; BP diastolic 48–72; PULSE 90–108; RESP 18–20; TEMP 35.7–36.8; O2SAT 95–97
[2025-01-12] MEDS: IPRATROPIUM/ALBUTEROL 0.5-3(2.5)MG/3ML NEB HHN SCH (02:09)
[2025-01-12] MEDS: HYDRALAZINE HCL 50MG TABLET PO SCH (05:15)
[2025-01-12] MEDS: BLOOD SUGAR DIAGNOSTIC STRIP TEST SCH (06:12)
[2025-01-12] MEDS: INSULIN LISPRO 100 UNITS/ML SUBCUT SCH (06:48)
[2025-01-12] MEDS: FUROSEMIDE 40MG TABLET PO SCH (09:03)
[2025-01-12] MEDS: FERROUS SULFATE 325MG TABLET PO SCH (09:03)
[2025-01-12] MEDS: PANTOPRAZOLE SODIUM 40 MG/VIAL IV SCH (09:04)
[2025-01-12] MEDS: ENOXAPARIN 30MG/0.3ML SYR SUBCUT SCH (09:05)
[2025-01-12] MEDS: HYDROCODONE/ACETAMINOPHEN 5/325MG TABLET PO PRN (09:24)
[2025-01-12 10:44] LABS: CLARITY URINE CLEAR (CLEAR); COLOR URINE YELLOW (YELLOW); GLUCOSE URINE 2+ (NEGATIVE); KETONES URINE NEGATIVE (NEGATIVE); LEUKOCYTE ESTERASE URINE TRACE (NEGATIVE); NITRITE URINE NEGATIVE (NEGATIVE); OCCULT BLOOD URINE TRACE (NEGATIVE); PH URINE 5.5 (4.5-8.0); PROTEIN URINE 3+ (NEGATIVE); SPECIFIC GRAVITY URINE 1.028 (1.005-1.030); UROBILINOGEN URINE 0.2 E.U./dL (0.2-1.0)
[2025-01-12 11:09] LABS: SQUAMOUS EPITHELIAL CELL URINE 2+ /lpf (RARE/1+)
[2025-01-12 11:11] LABS: BACTERIA URINE TRACE
[2025-01-12 11:17] LABS: *AMPHETAMINES SCREEN URINE NEGATIVE (NEGATIVE); *BARBITURATES SCREEN URINE NEGATIVE (NEGATIVE); *BENZODIAZEPINES SCREEN URINE NEGATIVE (NEGATIVE); *COCAINE SCREEN URINE NEGATIVE (NEGATIVE); CANNABINOID URINE SCREEN NEGATIVE (NEGATIVE); ECSTASY MDMA SCREEN URINE NEGATIVE (NEGATIVE); METHADONE URINE SCREEN NEGATIVE (NEGATIVE); OPIATES URINE SCREEN NEGATIVE (NEGATIVE); PHENCYCLIDINE URINE SCREEN NEGATIVE (NEGATIVE)
[2025-01-12 12:18] LABS: BASOPHILS % 1.0 % (0.0-2.0); EOSINOPHILS % 0.0 % (0.0-5.0); HEMATOCRIT. 24.4 % (36.0-48.0); HEMOGLOBIN. 7.5 g/dL (12.0-16.0); LYMPHOCYTES % 9.5 % (20.0-50.0); MEAN PLATELET VOLUME 7.1 fl (7.4-10.4); MONOCYTES % 3.1 % (2.0-8.0); NEUTROPHILS % 86.4 % (40.0-76.0); PLATELET 425 x1000/uL (130-400); RED BLOOD CELL COUNT 2.74 mill/uL (4.2-5.4); RED CELL DISTRIBUTION WIDTH 21.3 % (11.6-14.6)
[2025-01-12 12:50] LABS: CREATININE 4.0 mg/dL (0.6-1.0); UREA NITROGEN BLOOD 40.0 mg/dL (9-23)
[2025-01-12] MEDS: SODIUM ZIRCONIUM CYCLOSILICATE 10GM/PACKET PO NR (15:39)
[2025-01-12] MEDS: ALBUTEROL (0.5%) 2.5MG/0.5ML NEB HHN NR (16:32)
[2025-01-12] MEDS: MONTELUKAST SODIUM 10MG TABLET PO SCH (16:40)
[2025-01-12] MEDS: RISPERIDONE 1MG TABLET PO SCH (20:44)
[2025-01-12] MEDS: ATORVASTATIN CALCIUM 20MG TABLET PO SCH (20:45)
[2025-01-12] MEDS ORDERED: MORPHINE SULFATE 2 MG/ML INJ (NOT FOR IM USE) IV PRN (21:01)
[2025-01-12] MEDS: EPOETIN ALFA-EPBX 4,000 UNITS/ML VIAL SUBCUT SCH (21:29)
[2025-01-12] MEDS: CEFTRIAXONE 2GM/50ML 50 ML IV SCH (23:00)
[2025-01-13] VITALS (7 sets, daily range): BP systolic 94–128; BP diastolic 58–61; PULSE 80–102; RESP 20; TEMP 36–36.7; O2SAT 94–99
[2025-01-13 11:32] LABS: HEMATOCRIT. 22.9 % (36.0-48.0); HEMOGLOBIN. 7.2 g/dL (12.0-16.0); MEAN PLATELET VOLUME 7.3 fl (7.4-10.4); PLATELET 427 x1000/uL (130-400); RED BLOOD CELL COUNT 2.61 mill/uL (4.2-5.4); RED CELL DISTRIBUTION WIDTH 21.2 % (11.6-14.6)
[2025-01-13 11:45] LABS: UREA NITROGEN BLOOD 47.0 mg/dL (9-23)
[2025-01-13 11:46] LABS: CREATININE 5.5 mg/dL (0.6-1.0)
[2025-01-13] MEDS: SODIUM CHLORIDE 0.9% 1,000 ML IV SCH (17:15)
[2025-01-14 10:57] LABS: BAND% 1.0 % (1.0-6.0); LYMPHOCYTES % MANUAL 7.0 % (20.0-60.0); MONOCYTES % MANUAL 7.0 % (2.0-8.0); NEUTROPHILS % MANUAL 85.0 % (45.0-75.0); PLATELET ESTIMATE SLIGHTLY INCREASED
== END 2025-01-13 19:20 | disposition left against medical advice (07) | DRG 189 ==
LOC: ER 17:49 → 8WST 20:56 → EDBEDREQ 20:59 → EDBEDREQTM 20:59 → ENRESERV 21:27
PROVIDERS: ADMIT Internal Medicine; ATTEND Internal Medicine
DX: J96.00 Acute respiratory failure, unspecified whether with hypoxia or hypercapnia (principal); I13.2 Hypertensive heart and chronic kidney disease with heart failure and with stage 5 chronic kidney disease, or end stage renal disease; N17.9 Acute kidney failure, unspecified; D63.1 Anemia in chronic kidney disease; N18.5 Chronic kidney disease, stage 5; J45.901 Unspecified asthma with (acute) exacerbation; E11.22 Type 2 diabetes mellitus with diabetic chronic kidney disease; J44.1 Chronic obstructive pulmonary disease with (acute) exacerbation; K57.30 Diverticulosis of large intestine without perforation or abscess without bleeding; N20.0 Calculus of kidney; I50.9 Heart failure, unspecified; Z86.718 Personal history of other venous thrombosis and embolism; Z86.19 Personal history of other infectious and parasitic diseases
CPT/HCPCS: 36415; 71045; 71275; 80048; 80076; 80305; 81003; 82962; 83036; 83735; 83880; 84443; 84484; 85025; 86850; 86900; 93005; 94070; 94640; 94664; 96365; 96375; 99291; A4606; J0696; J0885; J1650; J1815; J2470; J2919; J3475; Q9967